=== PATIENT | female | born 1940 | race African-American/Black ===

== ENCOUNTER 2018-06-04 10:58 | Emergency (ER) | payer MEDICARE, MEDICAID ==
[~2018-06-04] VITALS: Ht 162.6 cm; Wt 54.5 kg
[2018-06-04] MEDS ORDERED: BENA20 PO (11:05)
[2018-06-04] MEDS ORDERED: AMLO-512 PO (11:05)
[2018-06-04] MEDS ORDERED: METF500T6 PO (11:05)
[2018-06-04] MEDS ORDERED: CLON.2 PO (11:05)
[2018-06-04 11:13] LABS: GLUCOSE,POINT OF CARE 99 MG/DL (70-110)
[2018-06-04 13:14] VITALS: BP 131/87
== END 2018-06-04 13:16 | disposition home or self-care (01) ==
LOC: EMS 10:59
DX: S13.4XXA Sprain of ligaments of cervical spine, initial encounter (principal); S20.211A Contusion of right front wall of thorax, initial encounter; M25.511 Pain in right shoulder; E11.9 Type 2 diabetes mellitus without complications; I10 Essential (primary) hypertension; M41.9 Scoliosis, unspecified; F17.210 Nicotine dependence, cigarettes, uncomplicated; Z98.51 Tubal ligation status; Z79.4 Long term (current) use of insulin; Z79.899 Other long term (current) drug therapy; Z88.8 Allergy status to other drugs, medicaments and biological substances; W18.39XA Other fall on same level, initial encounter; Y93.89 Activity, other specified; Y92.89 Other specified places as the place of occurrence of the external cause; Y99.8 Other external cause status
CPT/HCPCS: 99284